=== PATIENT | male | born 1965 | race Caucasian/White ===

== ENCOUNTER → 2017-10-30 | Outpatient (CLI) | payer OTHER | END | disposition home or self-care (01) | LOC: HKI 13:09 | DX: Z47.89 Encounter for other orthopedic aftercare (principal) ==

== ENCOUNTER 2018-12-26 06:50 | Inpatient (IN) | payer OTHER ==
[~2018-12-26 06:50] MED LIST: CEFAZOLIN 2 GM/50 ML (PMX) 50 ML IVPB
[2018-12-26] MEDS ORDERED: EPHEDrine SULFATE 50 MG/5 ML SYG (07:00)
[2018-12-26] MEDS ORDERED: SEVOFLURANE 15 MIN (07:00)
[2018-12-26] MEDS ORDERED: FENTAnyl 50 MCG/ML VIAL IV ×2 (10:30)
[2018-12-26] MEDS ORDERED: PROCHLORPERAZINE 10 MG INJ IV (10:30)
[2018-12-26] MEDS ORDERED: OXYCODONE/ACETAMINOPHEN (5/325) TAB PO ×2 (10:30)
[2018-12-26] MEDS ORDERED: DIPHENHYDRAMINE 50 MG INJ IV (10:30)
[2018-12-26] MEDS ORDERED: HYDROmorphONE 1 MG/5 ML IV SYRINGE IV (10:30)
[2018-12-26] MEDS ORDERED: MIDAZOLAM 1 MG/ML 2 ML INJ (10:39)
[2018-12-26] MEDS ORDERED: FENTAnyl 50 MCG/ML VIAL (10:39)
[2018-12-26] MEDS ORDERED: ROCURONIUM 50 MG INJ ×2 (10:43→11:40)
[2018-12-26] MEDS ORDERED: PROPOFOL 20 ML ×2 (10:43→11:40)
[2018-12-26] MEDS ORDERED: SUCCINYLCHOLINE CHLORIDE 100 MG/5 ML SYG IV (10:43)
[2018-12-26] MEDS ORDERED: ROPIVACAINE 0.5 % 30 ML VIAL (10:44)
[2018-12-26] MEDS ORDERED: LIDOCAINE 2% (SDV) 5 ML INJ (10:44)
[2018-12-26] MEDS ORDERED: ONDANSETRON 4 MG INJ (10:58)
[2018-12-26] MEDS ORDERED: CEFAZOLIN 1 GM INJ (10:58)
[2018-12-26] MEDS ORDERED: DEXAMETHASONE 4 MG/ML 5 ML INJ (10:58)
[2018-12-26] MEDS ORDERED: HYDROmorphONE 2 MG/ML SYG (11:37)
[2018-12-26] MEDS ORDERED: NEOSTIGMINE 3 MG/3 ML SYRINGE ×2 (12:32→12:33)
[2018-12-26] MEDS ORDERED: GLYCOPYRROLATE 0.4 MG INJ ×2 (12:32→12:34)
[2018-12-26] MEDS: BUPIVACAINE 0.5% (SDV) 30 ML INJ (12:38)
[2018-12-26] MEDS ORDERED: PHENYLephrine (100 MCG/ML) 10ML SYG (12:38)
[2018-12-26] MEDS ORDERED: NALOXONE (0.4 MG/ML) INJ IV (13:00)
[2018-12-26] MEDS ORDERED: HYDROCODONE/APAP (10/325) TAB PO (13:00)
[2018-12-26] MEDS ORDERED: HYDROmorphONE 0.5 MG/0.5 ML SYG IV (13:00)
[2018-12-26] MEDS ORDERED: ACETAMINOPHEN 325 MG TAB PO (13:00)
[2018-12-26] MEDS: MEPERIDINE 25 MG INJ IV (13:03)
[2018-12-26] MEDS: ONDANSETRON 4 MG INJ IV (13:07)
[2018-12-26] MEDS: HYDROmorphONE 1 MG/5 ML IV SYRINGE IV ×2 (13:14→13:25)
[2018-12-26] MEDS: SOD CHLORIDE 0.9% 1,000 ML IV ×3 (13:18→23:38)
[2018-12-26] MEDS: HYDROmorphONE 0.2 MG/ML PCA IV (13:35)
[2018-12-26] MEDS: FENTAnyl 50 MCG/ML VIAL IV ×2 (13:37→13:51)
[2018-12-26] MEDS: AMPICILLIN/SULB 3 GM/NS (PMX) 100 ML IVPB ×2 (13:49→18:21)
[2018-12-26 14:10] LABS: WHITE BLOOD COUNT 9.8 10^3/ul (4.8-10.8)
[2018-12-26 14:10] LABS: ABNORMAL IP MESSAGE 1; ADD MAN DIFF? YES; HEMATOCRIT 33.1 % (42.0-52.0); HEMOGLOBIN 10.7 g/dl (14.0-18.0); MEAN CORPUSCULAR HGB CONC 32.3 g/dl (32.0-37.0); MEAN CORPUSCULAR VOLUME 86.6 fl (82.0-101.0); PLATELET COUNT 199 10^3/UL (140-415); POSITIVE DIFF @See below; RED BLOOD COUNT 3.82 10^6/ul (4.70-6.10); RED CELL DISTRIBUTION WIDTH 14.3 % (11.5-14.5)
[2018-12-26 14:29] LABS: ALANINE AMINOTRANSFERASE 61 IU/L (13-69); ALBUMIN 3.2 g/dl (3.3-4.9); ALBUMIN/GLOBULIN RATIO 1.03; ALKALINE PHOSPHATASE 128 IU/L (42-121); ANION GAP 8 (5-13); ASPARTATE AMINO TRANSFERASE 79 IU/L (15-46); BILIRUBIN,INDIRECT 0.5 mg/dl (0-1.1); CARBON DIOXIDE 27 mmol/L (21-31); CHLORIDE 100 mmol/L (97-110); CREATININE 1.07 mg/dl (0.61-1.24); Estimated GFR > 60 mL/min (>60); GLUCOSE 135 mg/dl (70-220); POTASSIUM 3.8 mmol/L (3.5-5.1); SODIUM 135 mmol/L (135-144); TOTAL PROTEIN 6.3 g/dl (6.1-8.1)
[2018-12-26 14:30] LABS: BLOOD UREA NITROGEN 23 mg/dl (7-20)
[2018-12-26 15:23] LABS: ANISOCYTOSIS 2+ (0-0); BAND NEUTROPHILS #M 3.1 10^3/ul (0.0-0.6); BAND NEUTROPHILS % (M) 32 % (0-4); GIANT THROMBO% (M) 1 % (0-0); LYMPHOCYTES #M 0.4 10^3/ul (0.8-2.9); LYMPHOCYTES % (M) 5 % (15-51); MICROCYTOSIS 2+ (0-0); PLATELET ESTIMATE NORMAL; SEG NEUT #M 6.5 10^3/ul (1.6-7.5); SEGMENTED NEUTROPHILS (M) % 63 % (39-77); SMUDGE%M 3 % (0-0)
[2018-12-27] MEDS: AMPICILLIN/SULB 3 GM/NS (PMX) 100 ML IVPB ×2 (01:01→06:33)
[2018-12-27 05:52] LABS: ADD MAN DIFF? NO
[2018-12-27 06:02] LABS: WHITE BLOOD COUNT 10.8 10^3/ul (4.8-10.8)
[2018-12-27 06:02] LABS: BASOPHILS % 0.2 % (0.0-2.0); HEMATOCRIT 33.4 % (42.0-52.0); HEMOGLOBIN 10.6 g/dl (14.0-18.0); LYMPHOCYTES # 0.6 10^3/ul (0.8-2.9); LYMPHOCYTES % 5.9 % (15.0-51.0); MEAN CORPUSCULAR HEMOGLOBIN 27.5 pg (29.0-33.0); MEAN CORPUSCULAR HGB CONC 31.7 g/dl (32.0-37.0); MEAN CORPUSCULAR VOLUME 86.5 fl (82.0-101.0); MEAN PLATELET VOLUME 10.2 fl (7.4-10.4); MONOCYTE # 0.9 10^3/ul (0.3-0.9); MONOCYTES % 8.3 % (0.0-11.0); NEUTROPHIL # 9.1 10^3/ul (1.6-7.5); NEUTROPHILS % 84.6 % (39.0-77.0); PLATELET COUNT 227 10^3/UL (140-415); POSITIVE DIFF @See below; RED BLOOD COUNT 3.86 10^6/ul (4.70-6.10); RED CELL DISTRIBUTION WIDTH 14.3 % (11.5-14.5)
[2018-12-27] MEDS: HYDROmorphONE 0.2 MG/ML PCA IV (06:14)
[2018-12-27] MEDS: LEVOTHYROXINE 137 MCG TAB PO (06:33)
[2018-12-27 06:39] LABS: ALANINE AMINOTRANSFERASE 57 IU/L (13-69); ALBUMIN 3.5 g/dl (3.3-4.9); ALBUMIN/GLOBULIN RATIO 0.97; ALKALINE PHOSPHATASE 135 IU/L (42-121); ANION GAP 10 (5-13); ASPARTATE AMINO TRANSFERASE 72 IU/L (15-46); BILIRUBIN,INDIRECT 0.4 mg/dl (0-1.1); BILIRUBIN,TOTAL 0.4 mg/dl (0.2-1.3); BLOOD UREA NITROGEN 18 mg/dl (7-20); CALCIUM 8.6 mg/dl (8.4-10.2); CARBON DIOXIDE 29 mmol/L (21-31); CHLORIDE 99 mmol/L (97-110); CREATININE 0.97 mg/dl (0.61-1.24); Estimated GFR > 60 mL/min (>60); GLUCOSE 123 mg/dl (70-220); POTASSIUM 4.3 mmol/L (3.5-5.1); SODIUM 138 mmol/L (135-144); TOTAL PROTEIN 7.1 g/dl (6.1-8.1)
[2018-12-27] MEDS: ESCITALOPRAM 10 MG TAB PO (09:01)
[2018-12-27] MEDS: ATENOLOL 50 MG TAB PO (09:06)
[2018-12-27] MEDS: PANTOPRAZOLE (EC) 40 MG TAB PO (10:47)
[2018-12-27] MEDS: SOD CHLORIDE 0.9% 1,000 ML IV ×2 (10:48→21:29)
[2018-12-27] MEDS: ATORVASTATIN 40 MG TAB PO (21:29)
[2018-12-28] MEDS: BISACODYL (EC) 5 MG TAB PO (01:56)
[2018-12-28] MEDS: PANTOPRAZOLE (EC) 40 MG TAB PO (05:58)
[2018-12-28] MEDS: LEVOTHYROXINE 137 MCG TAB PO (05:59)
[2018-12-28] MEDS: SOD CHLORIDE 0.9% 1,000 ML IV (05:59)
[2018-12-28] MEDS: ESCITALOPRAM 10 MG TAB PO (09:21)
[2018-12-28] MEDS: ATENOLOL 50 MG TAB PO (09:21)
[2018-12-28] MEDS: ATORVASTATIN 40 MG TAB PO (20:19)
[2018-12-29] MEDS: PANTOPRAZOLE (EC) 40 MG TAB PO (05:21)
[2018-12-29] MEDS: LEVOTHYROXINE 137 MCG TAB PO (05:21)
[2018-12-29 05:33] LABS: ADD MAN DIFF? NO
[2018-12-29 05:35] LABS: WHITE BLOOD COUNT 9.2 10^3/ul (4.8-10.8)
[2018-12-29 05:35] LABS: ABNORMAL IP MESSAGE 1; BASOPHIL # 0.1 10^3/ul (0.0-0.1); BASOPHILS % 0.7 % (0.0-2.0); EOSINOPHILS # 0.2 10^3/ul (0.0-0.5); EOSINOPHILS % 1.7 % (0.0-7.0); HEMATOCRIT 30.3 % (42.0-52.0); LYMPHOCYTES # 1.7 10^3/ul (0.8-2.9); LYMPHOCYTES % 17.9 % (15.0-51.0); MEAN CORPUSCULAR HEMOGLOBIN 28.1 pg (29.0-33.0); MEAN CORPUSCULAR VOLUME 85.1 fl (82.0-101.0); MEAN PLATELET VOLUME 9.4 fl (7.4-10.4); MONOCYTE # 0.7 10^3/ul (0.3-0.9); NEUTROPHIL # 5.8 10^3/ul (1.6-7.5); NEUTROPHILS % 63.3 % (39.0-77.0); NUCLEATED RED BLOOD CELLS% 0.2 /100WBC (0.0-0.0); PLATELET COUNT 239 10^3/UL (140-415); POSITIVE DIFF @See below; RED BLOOD COUNT 3.56 10^6/ul (4.70-6.10); RED CELL DISTRIBUTION WIDTH 13.8 % (11.5-14.5)
[2018-12-29] MEDS: ESCITALOPRAM 10 MG TAB PO (10:46)
[2018-12-29] MEDS: ATENOLOL 50 MG TAB PO (10:46)
== END 2018-12-29 14:55 | disposition home or self-care (01) | DRG 414 ==
LOC: SDS 06:50 → REC 12:39 → PP2 14:54
PROC: 0FT40ZZ Resection of Gallbladder, Open Approach (ICD-10-PCS; principal; 2018-12-26 10:30)
PROC: 0FJ44ZZ Inspection of Gallbladder, Percutaneous Endoscopic Approach (ICD-10-PCS; 2018-12-26 10:30)
PROC: 0FN00ZZ Release Liver, Open Approach (ICD-10-PCS; 2018-12-26 10:30)
PROC: 0FN40ZZ Release Gallbladder, Open Approach (ICD-10-PCS; 2018-12-26 10:30)
PROC: 0DNU0ZZ Release Omentum, Open Approach (ICD-10-PCS; 2018-12-26 10:30)
DX: K80.12 Calculus of gallbladder with acute and chronic cholecystitis without obstruction (principal); K65.1 Peritoneal abscess; I10 Essential (primary) hypertension; E78.5 Hyperlipidemia, unspecified; E03.9 Hypothyroidism, unspecified; K66.0 Peritoneal adhesions (postprocedural) (postinfection); K82.8 Other specified diseases of gallbladder
CPT/HCPCS: 74018; 80053; 85025; 88304